=== PATIENT | male | born 1965 | race Caucasian/White ===

== ENCOUNTER 2021-07-23 23:27 | Emergency (ER) | payer OTHER ==
[2021-07-23 23:41] VITALS: BP 156/97; PULSE 83; RESP 20; TEMP 99.4
[2021-07-23] MEDS ORDERED: LIDOCAINE 1% INJ 10MG/ML (20 ML MDV) SQ ONE (23:45)
[2021-07-23] MEDS ORDERED: DIPH,PERTUS(ACELL)TETVAC-LF 0.5 ML VIAL IM ONE (23:49)
[2021-07-24] MEDS ORDERED: BACITRACIN OINT 1 EACH PACKET TOPICAL STA (00:06)
--- NOTE | 2021-07-24 00:07 | ED ---
General Adult HPI - General Chief complaint: Wound/Laceration Stated complaint: Left hand first finger cut Time Seen by Provider: 07/23/21 23:45 Source: patient Mode of arrival: ambulatory Limitations: no limitations - History of Present Illness Initial comments: 55-year-old male presents to the emergency room for chief complaint of left finger laceration. Patient states that he was carving a deer when he accidentally cut his finger with a knife. Patient has no difficulty moving the finger. Patient states it won't stop bleeding and that is what caused him to come in. Patient is not up-to-date on tetanus.Patient has no other complaints at this time including shortness of breath, chest pain, abdominal pain, nausea or vomiting, headache, or visual changes. - Related Data Allergies Allergy/AdvReac Type Severity Reaction Status Date / Time No Known Allergies Allergy Verified 07/23/21 23:41 Review of Systems ROS Statement: Those systems with pertinent positive or pertinent negative responses have been documented in the HPI. ROS Other: All systems not noted in ROS Statement are negative. Past Medical History Past Medical History: No Reported History History of Any Multi-Drug Resistant Organisms: None Reported Past Surgical History: No Surgical Hx Reported Past Psychological History: No Psychological Hx Reported Smoking Status: Never smoker Past Alcohol Use History: Rare Past Drug Use History: None Reported General Exam Limitations: no limitations General appearance: alert, in no apparent distress Head exam: Present: atraumatic Eye exam: Present: normal appearance, PERRL, EOMI. Absent: scleral icterus, conjunctival injection ENT exam: Present: normal exam, mucous membranes moist Neck exam: Present: normal inspection, full ROM. Absent: tenderness Respiratory exam: Present: normal lung sounds bilaterally. Absent: respiratory distress, wheezes Cardiovascular Exam: Present: regular rate, normal rhythm, normal heart sounds Extremities exam: Present: full ROM (Full range of motion of all joints of the left second digit including the DIP, PIP, and MCP joint.), normal capillary refill (Capillary refill less than 2 seconds left second digit.), other (Patient has a 2 cm laceration along the DIP joint of the left second digit, palmar aspect. No evidence for tendon injury.) Course Vital Signs 07/23/21 23:37 Temperature 99.4 F Pulse Rate 83 Respiratory 20 Rate Blood Pressure 156/97 O2 Sat by Pulse 97 Oximetry Procedures - Laceration Laceration #1 Consent Obtained: verbal consent Indication: laceration Site: hand Size (cm): 2 Description: linear Depth: simple, single layer Anesthetic Used: lidocaine 1% Anesthesia Technique: local infiltration Amount (mls): 2 Pre-repair: wound explored, irrigated extensively, deep structures intact Type of Sutures: nylon Size of Sutures: 5-0 Number of Sutures: 3 Technique: simple, interrupted Patient Tolerated Procedure: well, no complications Medical Decision Making - Medical Decision Making Laceration was repaired with simple and opted sutures after irrigating thoroughly. Antibiotic ointment and dressing applied. Patient to be discharged home. He was updated on tetanus. He will return here for any worsening symptoms or for suture removal. Disposition Clinical Impression: Laceration Disposition: HOME SELF-CARE Condition: Good Instructions (If sedation given, give patient instructions): Care For Your Stitches (ED), Laceration (ED) Additional Instructions: Please clean the area with gentle soap and water and apply antibiotic ointment twice daily. Keep out of dirty water. Monitor for signs of infection such as spreading or streaking redness, drainage, or fever return if these occur. Return to the ER in 7-10 days for suture removal. Is patient prescribed a controlled substance at d/c from ED?: No Referrals: Nonstaff,Physician [Primary Care Provider] - 1-2 days Time of Disposition: 00:06
== END 2021-07-24 00:34 | disposition home or self-care (01) ==
LOC: EC 23:27
DX: S61.012A Laceration without foreign body of left thumb without damage to nail, initial encounter (principal); Z23 Encounter for immunization; W26.0XXA Contact with knife, initial encounter; Y93.F9 Activity, other caregiving
CPT/HCPCS: 90715; 99282; 12001; 90471; J2001; 99283